=== PATIENT | male | born 1995 | race Caucasian/White ===

== ENCOUNTER 2018-03-19 14:30 | Emergency (ER) | payer OTHER ==
[~2018-03-19] VITALS: Ht 172.7 cm; Wt 92.0 kg
[2018-03-19] MEDS ORDERED: SODIUM CHLORIDE 0.9% 1,000 ML IV ONE (18:02)
[2018-03-19] MEDS ORDERED: LEVETIRACETAM 1000MG/100ML 100 ML IV ONE (18:15)
[2018-03-19 19:28] LABS: BASOPHILS % 0.4 % (0.0-2.0); EOSINOPHILS % 0.5 % (0.0-5.0); HEMATOCRIT. 47.1 % (42.0-52.0); HEMOGLOBIN. 15.7 g/dL (14.0-18.0); LYMPHOCYTES % 10.5 % (20.0-50.0); MEAN CORPUSCULAR HEMOGLOBIN 29.8 pg (28.0-32.0); MEAN CORPUSCULAR VOLUME 89.2 fL (80.0-94.0); MEAN PLATELET VOLUME 9.2 fl (7.4-10.4); MONOCYTES % 4.5 % (2.0-8.0); NEUTROPHILS % 84.1 % (40.0-76.0); PLATELET 309 x1000/uL (130-400); RED BLOOD CELL COUNT 5.28 mill/uL (4.7-6.1); RED CELL DISTRIBUTION WIDTH 13.4 % (11.6-14.6)
[2018-03-19 19:32] LABS: CHLORIDE 104 mEq/L (98-107)
[2018-03-19 19:34] LABS: ETHANOL BLOOD < 10 mg/dL
[2018-03-19 19:35] LABS: INR 1.1; PARTIAL THROMBOPLASTIN TIME 26.8 sec (23.4-31.0); PROTHROMBIN TIME 10.8 sec (9.1-11.1)
[2018-03-19 22:35] VITALS: BP 112/65
== END 2018-03-19 22:37 | disposition home or self-care (01) ==
LOC: ER 14:30
DX: R56.9 Unspecified convulsions (principal); R62.50 Unspecified lack of expected normal physiological development in childhood; Z88.0 Allergy status to penicillin
CPT/HCPCS: 36415; 70450; 80048; 85025; 85610; 85730; 87186; 96365; 99284; J1953; J7030

== ENCOUNTER 2022-01-29 01:25 | Emergency (ER) | payer OTHER ==
[~2022-01-29] VITALS: Ht 182.9 cm; Wt 90.0 kg
[2022-01-29] MEDS ORDERED: LEVETIRACETAM 1000MG PREMIX 100 ML IV ONE (02:00)
[2022-01-29 02:50] LABS: BASOPHILS % 0.4 % (0.0-2.0); EOSINOPHILS % 1.3 % (0.0-5.0); HEMOGLOBIN. 14.8 g/dL (14.0-18.0); MEAN CORPUSCULAR HEMOGLOBIN 30.2 pg (28.0-32.0); MEAN CORPUSCULAR VOLUME 89.7 fL (80.0-94.0); MEAN PLATELET VOLUME 8.2 fl (7.4-10.4); MONOCYTES % 6.4 % (2.0-8.0); NEUTROPHILS % 79.9 % (40.0-76.0); PLATELET 310 x1000/uL (130-400); RED CELL DISTRIBUTION WIDTH 13.2 % (11.6-14.6)
[2022-01-29 03:00] LABS: CLARITY URINE CLEAR (CLEAR); COLOR URINE YELLOW (YELLOW); KETONES URINE NEGATIVE (NEGATIVE); LEUKOCYTE ESTERASE URINE NEGATIVE (NEGATIVE); NITRITE URINE NEGATIVE (NEGATIVE); OCCULT BLOOD URINE NEGATIVE (NEGATIVE); PH URINE 5.5 (4.5-8.0); PROTEIN URINE TRACE (NEGATIVE); SPECIFIC GRAVITY URINE 1.017 (1.005-1.030); UROBILINOGEN URINE 0.2 E.U./dL (0.2-1.0)
[2022-01-29 03:13] LABS: CHLORIDE 108 mEq/L (98-107)
[2022-01-29 03:19] LABS: ETHANOL BLOOD < 10 mg/dL
[2022-01-29 03:26] LABS: *AMPHETAMINES SCREEN URINE NEGATIVE (NEGATIVE); *BARBITURATES SCREEN URINE NEGATIVE (NEGATIVE); *BENZODIAZEPINES SCREEN URINE NEGATIVE (NEGATIVE); *COCAINE SCREEN URINE NEGATIVE (NEGATIVE); CANNABINOID URINE SCREEN NEGATIVE (NEGATIVE); METHADONE URINE SCREEN NEGATIVE (NEGATIVE); OPIATES URINE SCREEN NEGATIVE (NEGATIVE); PHENCYCLIDINE URINE SCREEN NEGATIVE (NEGATIVE)
[2022-01-29 05:35] VITALS: BP 110/53
== END 2022-01-29 05:51 | disposition home or self-care (01) ==
LOC: ER 01:25
DX: R56.9 Unspecified convulsions (principal); Z88.0 Allergy status to penicillin
CPT/HCPCS: 36415; 70450; 80053; 80305; 80320; 81003; 82962; 85025; 96365; 99284; J1953; G0480